=== PATIENT | male | born 2000 | race Two or more races ===

== ENCOUNTER 2025-02-22 15:09 | Emergency (ER) | payer MEDICAID, OTHER ==
[~2025-02-22] VITALS: Ht 167.6 cm; Wt 59.0 kg
[2025-02-22 15:11] VITALS: BP 108/54; PULSE 65; TEMP 97.6
--- NOTE | 2025-02-22 15:49 | ED.PDOC ---
GI ASSESSMENT HPI Comments 24 y/o M, presents to the ED for CC of nausea/vomiting. Patient states, he has been experiencing symptoms of nausea/vomiting sudden onset, this morning (02/22/25). Patient reports, associated symptoms of diffuse abdominal pain in relation. Patient relays, he has experienced similar symptoms in the past d/t cannabinoid hyperemesis syndrome; patient continues to smoke marijuana at this time. Patient denies fever, chills, diarrhea, or melena. No other symptoms or modifying factors are present at this time. Chief Complaint: Nausea/Vomiting Time Seen by MD: 15:40 Reviewed Notes: Nurses Notes, Medications, Allergies Allergies: Coded Allergies: NO KNOWN ALLERGIES (Unverified , 02/22/25) Information Source: Patient Mode of Arrival: Ambulatory Timing: Hours Duration: Since onset Prehospital treatment: None Quality: None Vomitus: Watery Stool: Normal Severity: Moderate Recent: None Recent Hx of: None Pain Location: Diffuse Modifying Factors: Nothing Associated sign and symptoms: Nausea, Vomiting, Abdominal Pain Past Medical History PAST MEDICAL HISTORY: Denies Surgical History: Denies all surgeries Family History Family History: Unknown Social History Smoker: Non-Smoker Alcohol: Occasionally Drugs: Marijuana Lives In: Home Constitutional: denies: chills, diaphoresis, fatigue, fever, malaise, sweats, weakness, others EENTM: denies: blurred vision, double vision, ear bleeding, ear discharge, ear drainage, ear pain, ear ringing, eye pain, eye redness, hearing loss, mouth pain, mouth swelling, nasal discharge, nose bleeding, nose congestion, nose pain, photophobia, tearing, throat pain, throat swelling, voice changes, others Respiratory: denies: cough, hemoptysis, orthopnea, SOB at rest, shortness of breath, SOB with excertion, stridor, wheezing, others Cardiovascular: denies: chest pain, dizzy spells, diaphoresis, Dyspnea on exertion, edema, irregular heart beat, left arm pain, lightheadedness, palpitations, PND, syncope, others Gastrointestinal: reports: abdominal pain, nausea, vomiting; denies: abdomen distended, blood streaked bowels, constipated, diarrhea, dysphagia, difficulty swallowing, hematemesis, melena, poor appetite, poor fluid intake, rectal bleeding, rectal pain, others Genitourinary: denies: burning, dysuria, flank pain, frequency, hematuria, incontinence, penile discharge, penile sore, pain, testicle pain, testicle swelling, urgency, others Neurological: denies: dizziness, fainting, headache, left sided numbness, left sided weakness, numbness, paresthesia, pre-existing deficit, right sided numbness, right sided weakness, seizure, speech problems, tingling, tremors, weakness, others Musculoskeletal: denies: back pain, gout, joint pain, joint swelling, muscle pa in, muscle stiffness, neck pain, others Integumetry: denies: bruises, change in color, change in hair/nails, dryness, laceration, lesions, lumps, rash, wounds, others Allergic/Immunocompromised: denies: Difficulty Healing, Frequent Infections, Hives, Itching, others Hematologic/Lymphatic: denies: anemia, blood clots, easy bleeding, easy bruising, swollen glands, others Endocrine: denies: excessive hunger, excessive sweating, excessive thirst, excessive urination, flushing, intolerance to cold, intolerance to heat, unexplained weight gain, unexplained weight loss, others Psychiatric: denies: anxiety, bipolar disorder, depression, hopeless, panic disorder, schizophrenia, sleepless, suicidal, others All Other Systems: Reviewed and Negative Physical Exam General Appearance: Moderate Distress HEENT: Pale Conjuntivae (L), Pale Conjuntivae (R), Pharynx Normal, TMs Normal Neck: Full Range of Motion, Non-Tender, Normal, Normal Inspection Respiratory: Chest Non-Tender, Lungs Clear, No Accessory Muscle Use, No Respiratory Distress, Normal Breath Sounds Cardiovascular: No Edema, No JVD, No Murmur, No Gallop, Normal Peripheral Pulses, Regular Rate/Rhythm Breast Exam: Deferred Gastrointestinal: No Organomegaly, Non Tender, No Pulsatile Mass, Normal Bowel Sounds, Soft Genitalia: Deferred Pelvic: Deferred Rectal: Deferred Extremities: No calf tenderness, Normal capillary refill, Normal inspection, N ormal range of motion, Non-tender, No pedal edema Musculoskeletal : Apperance: Normal Neurologic: Alert, rn acute care II-XII nml as Tested, Motor Weakness, Normal Affect, Normal Mood, No Sensory Deficits Cerebellar Function: Normal Reflexes: Normal Skin: Dry, Normal Color, Warm Lymphatic: No Adenopathy Was a procedure done? Was a procedure done?: No GI differential Dx Differential Diagnosis: Gastritis/PUD, Drug toxicity, Other (dehydration) X-Ray, Labs, Meds, VS Vital Signs Date Time Temp Pulse Resp B/P (MAP) Pulse Ox O2 Delivery O2 Flow Rate FiO2 02/22/25 16:03 18 99 Room Air* 0 21 02/22/25 15:11 97.6 65 20 108/54 100 97.6 Lab Test 02/22/25 15:55 Range/Units White Blood Count 10.2 4.4-10.8 10^3/uL Red Blood Count 5.61 4.5-5.90 10^6/uL Hemoglobin 16.5 13.5-17.5 g/dL Hematocrit 47.5 41.0-53.0 % Mean Corpuscular Volume 84.6 80.0-100.0 fL Mean Corpuscular Hemoglobin 29.4 28.0-32.0 pg Mean Corpuscular Hemoglobin Concent 34.8 32.0-36.0 g/dL Red Cell Distribution Width 13.4 11.8-14.3 % Platelet Count 304 140-450 10^3/uL Mean Platelet Volume 8.7 6.9-10.8 fL Neutrophils (%) (Auto) 78.6 37.0-80.0 % Lymphocytes (%) (Auto) 14.6 10.0-50.0 % Monocytes (%) (Auto) 6.2 0.0-12.0 % Eosinophils (%) (Auto) 0.3 0.0-7.0 % Basophils (%) (Auto) 0.3 0.0-2.0 % Neutrophils # (Auto) 8.0 1.6-8.6 10 ^3/uL Lymphocytes # (Auto) 1.5 0.4-5.4 10 ^3/uL Monocytes # (Auto) 0.6 0-1.3 10 ^3/uL Eosinophils # (Auto) 0 0-0.8 10 ^3/uL Basophils # (Auto) 0 0-0.2 10 ^3/uL Nucleated Red Blood Cells 0.3 % Sodium Level 144 136-145 mmol/L Potassium Level 3.6 3.5-5.1 mmol/L Chloride Level 104 98-107 mmol/L Carbon Dioxide Level 21 20-31 mmol/L Anion Gap 19 H 5-15 Blood Urea Nitrogen 7 L 9-23 mg/dL Creatinine 1.15 0.700-1.30 mg/dL Glomerular Filtration Rate Calc 92 >90 mL/min BUN/Creatinine Ratio 6.1 L 10.0-20.0 Serum Glucose 157 H 74-106 mg/dL Calcium Level 10.9 H 8.7-10.4 mg/dL Current Medications Medications (Trade) Dose Ordered Sig/Yonathan Route Start Time Stop Time Status Last Admin Sodium Chloride 1,000 ml @ 1,000 mls/hr Q1H ONCE IV 02/22/25 15:45 02/22/25 16:30 DC 02/22/25 15:56 Prochlorperazine Edisylate (Compazine Inj) 10 mg ONCE ONCE IV 02/22/25 15:45 02/22/25 15:46 DC 02/22/25 15:57 Pantoprazole Sodium (Protonix) 40 mg ONCE ONCE IV 02/22/25 15:45 02/22/25 15:46 DC 02/22/25 15:57 IV Hep-Lock was established. The patient was given 1 L bolus of normal saline The patient was given Compazine 10 mg IV push The patient was given Protonix 40 mg IV push The patient had a CBC and chemistry panel done and is within normal limits. At this time, the patient received the Compazine and now he states that he would like to leave. We did also discuss the fact that the patient's symptoms are secondary to the marijuana use and he is aware of that The patient has now signed out AMA. Images Reviewed?: Images reviewed and evaluated by me Time of 1ST Reevaluation: 16:10 Reevaluation 1ST: Unchanged Patient Education/Counseling: Diagnosis, Treatment, Prognosis Family Education/Counseling: No Family Present SEPSIS Sepsis Screen Date sepsis recognized/suspect: Feb 22, 2025 Time Sepsis recognized/suspect: 1510 Recent Procedure: No On Antibiotic Therapy: No Respiratory Rate >20: Yes Heart Rate >90: No Temp<36 C (96.8 F) or >38.3 C: No SBP <90 or MAP <65 mmHG: No New Acute Mental Status Change: No Is the patient on CPAP, BIPAP,: No Physician Orders Urinalysis (02/22/25 15:43) Heplock Iv (02/22/25 15:43) Vital Signs Date Time Temp Pulse Resp B/P (MAP) Pulse Ox O2 Delivery O2 Flow Rate FiO2 9/1/25 16:03 18 99 Room Air* 0 21 02/22/25 15:11 97.6 65 20 108/54 100 97.6 Laboratory Tests Test 02/22/25 15:55 White Blood Count 10.2 10^3/uL (4.4-10.8) Medications Medications Dose Ordered Sig/Yonathan Route Start Time Stop Time Status Last Admin Dose Admin Pantoprazole Sodium 40 mg ONCE ONCE IV 02/22/25 15:45 02/22/25 15:46 DC 02/22/25 15:57 Prochlorperazine Edisylate 10 mg ONCE ONCE IV 02/22/25 15:45 02/22/25 15:46 DC 02/22/25 15:57 Sodium Chloride 1,000 ml @ 1,000 mls/hr Q1H ONCE IV 02/22/25 15:45 02/22/25 16:30 DC 02/22/25 15:56 Departure 1 Departure Time of Disposition: 16:33 Impression: Primary Impression: Cannabinoid hyperemesis syndrome Disposition: 07 LEFT AGAINST MEDICAL ADVICE Condition: Fair Critical Care Note Critical Care Time?: No Stability Stability form required: No Heart Score Heart Score: Heart Score Response (Comments) Value History N/A 0 EKG N/A 0 Age N/A 0 Risk Factors N/A 0 Troponin N/A 0 Total 0 I personally scribed for NICOLE BRUNSON MD ([email or web address]) on 02/22/25 at 15:49. Electronically submitted by Karen Garnett ([email or web address]). NICOLE BRUNSON MD Feb 22, 2025 15:49
[2025-02-22] MEDS: SODIUM CHLORIDE 0.9% 1,000 ML IV ONE (15:56)
[2025-02-22] MEDS: PROCHLORPERAZINE EDISYLATE 5 MG/ML 2ML VIAL IV ONE (15:57)
[2025-02-22] MEDS: PANTOPRAZOLE 40 MG/10 ML VIAL INJ IV ONE (15:57)
[2025-02-22 16:03] VITALS: RESP 18; O2SAT 99
[2025-02-22 16:09] LABS: Hematocrit 47.5 % (41.0-53.0); Hemoglobin 16.5 g/dL (13.5-17.5); Mean Corpuscular Hemoglobin 29.4 pg (28.0-32.0); Mean Corpuscular Volume 84.6 fL (80.0-100.0); Nucleated Red Blood Cells % 0.3 %
[2025-02-22 16:20] LABS: Chloride 104 mmol/L (98-107); Potassium 3.6 mmol/L (3.5-5.1); Sodium 144 mmol/L (136-145)
[2025-02-22 16:21] LABS: Anion Gap 19 (5-15); Calcium 10.9 mg/dL (8.7-10.4); Carbon Dioxide 21 mmol/L (20-31)
[2025-02-22 16:26] LABS: BUN/Creatinine Ratio 6.1 (10.0-20.0)
[2025-02-22 16:27] LABS: Blood Urea Nitrogen 7 mg/dL (9-23); Glucose 157 mg/dL (74-106)
[2025-02-22] MEDS ORDERED: DICY10CA PO (19:27)
[2025-02-22] MEDS ORDERED: OMEP-434 PO (19:27)
[2025-02-22] MEDS ORDERED: ZOFR4T PO (19:27)
== END 2025-02-22 16:29 | disposition left against medical advice (07) ==
LOC: ER 15:09
DX: F12.90 Cannabis use, unspecified, uncomplicated (principal); F17.200 Nicotine dependence, unspecified, uncomplicated
CPT/HCPCS: 36415; 80048; 85025; 96361; 96374; 96375; 99284; J0780; J2470; J7030

== ENCOUNTER 2025-02-22 17:06 | Emergency (ER) | payer MEDICAID ==
[~2025-02-22] VITALS: Ht 167.6 cm; Wt 60.0 kg
--- NOTE | 2025-02-22 17:47 | ED.PDOC ---
GI ASSESSMENT HPI Comments This is a 24 year-old male who presents to the ED via wheelchair with a chief complaint of N/V with associated abdominal pain, abdominal cramping, and lightheadedness as of today. Patient reports last bowel movement today. Patient states he came to the ED earlier today but left AMA. His father advised him to return, as his symptoms had not improved. Patient has a social history of MJ use. Patient has no further complaints at this time and otherwise denies further associated symptoms of fever, chills, cough, SOB, chest pain, or diarrhea. Chief Complaint: Nausea/Vomiting Time Seen by MD: 17:32 Reviewed Notes: Nurses Notes, Medications, Allergies Allergies: Coded Allergies: NO KNOWN ALLERGIES (Unverified , 02/22/25) Home Meds Active Scripts Omeprazole Magnesium (Omeprazole) 20 Mg Tab, 20 MG PO DAILY, #30 TAB Prov:MAREN ANTHONY MD 02/22/25 Dicyclomine Hcl (BENTYL CAPSULE) 10 Mg Cp, 2 CAP PO Q6HP PRN, #30 CAP 11 Refills Prov:MAREN ANTHONY MD 02/22/25 Ondansetron Odt 4MG Tab (ZOFRAN PO) 4 Mg Tb, 4 MG PO TID PRN, #30 TAB ODT TAB-DISSOLVE IN MOUTH, THEN SWALLOW Prov:MAREN ANTHONY MD 02/22/25 Information Source: Patient Mode of Arrival: Wheelchair Timing: Hours Duration: Since onset Prehospital treatment: None Quality: Cramping Severity: Moderate Pain Location: Diffuse Associated sign and symptoms: Nausea, Vomiting, Abdominal Pain Past Medical History PAST MEDICAL HISTORY: Denies Surgical History: Denies all surgeries Family History Family History: Unknown Social History Smoker: Non-Smoker Alcohol: Occasionally Drugs: Marijuana Lives In: Home Constitutional: denies: chills, diaphoresis, fatigue, fever, malaise, sweats, weakness, others EENTM: denies: blurred vision, double vision, ear bleeding, ear discharge, ear drainage, ear pain, ear ringing, eye pain, eye redness, hearing loss, mouth pain, mouth swelling, nasal discharge, nose bleeding, nose congestion, nose pain, photophobia, tearing, throat pain, throat swelling, voice changes, others Respiratory: denies: cough, hemoptysis, orthopnea, SOB at rest, shortness of breath, SOB with excertion, stridor, wheezing, others Cardiovascular: denies: chest pain, dizzy spells, diaphoresis, Dyspnea on exertion, edema, irregular heart beat, left arm pain, lightheadedness, palpitations, PND, syncope, others Gastrointestinal: reports: abdominal pain, nausea, vomiting; denies: abdomen distended, blood streaked bowels, constipated, diarrhea, dysphagia, difficulty swallowing, hematemesis, melena, poor appetite, poor fluid intake, rectal b leeding, rectal pain, others Genitourinary: denies: burning, dysuria, flank pain, frequency, hematuria, in continence, penile discharge, penile sore, pain, testicle pain, testicle swelling, urgency, others Neurological: reports: others (lightheadedness ); denies: dizziness, fainting, headache, left sided numbness, left sided weakness, numbness, paresthesia, pre- existing deficit, right sided numbness, right sided weakness, seizure, speech problems, tingling, tremors, weakness Musculoskeletal: denies: back pain, gout, joint pain, joint swelling, muscle pain, muscle stiffness, neck pain, others Integumetry: denies: bruises, change in color, change in hair/nails, dryness, laceration, lesions, lumps, rash, wounds, others Allergic/Immunocompromised: denies: Difficulty Healing, Frequent Infections, Hives, Itching, others Hematologic/Lymphatic: denies: anemia, blood clots, easy bleeding, easy bruising, swollen glands, others Endocrine: denies: excessive hunger, excessive sweating, excessive thirst, excessive urination, flushing, intolerance to cold, intolerance to heat, unexplained weight gain, unexplained weight loss, others Psychiatric: denies: anxiety, bipolar disorder, depression, hopeless, panic disorder, schizophrenia, sleepless, suicidal, others All Other Systems: Reviewed and Negative Physical Exam General Appearance: Mild Distress HEENT: Other (Pupils and face symmetric. Dry mucous membranes.) Neck: Full Range of Motion, Normal Inspection Respiratory: Lungs Clear, No Accessory Muscle Use, No Respiratory Distress, Normal Breath Sounds Cardiovascular: No Edema, No JVD, Regular Rate/Rhythm Breast Exam: Deferred Gastrointestinal: Soft, Tenderness (Mid abdominal) Genitalia: Deferred Pelvic: Deferred Rectal: Deferred Extremities: Normal inspection, Normal range of motion, Non-tender, No pedal edema Neurologic: Alert (Oriented x4), Normal Affect, Normal Mood, Other (Ambulatory) Cerebellar Function: NOT DONE Reflexes: NOT DONE Skin: Dry, Pallor, Warm Lymphatic: NOT DONE Was a procedure done? Was a procedure done?: No GI differential Dx Differential Diagnosis: Bowel Obstruction, Constipation, Diverticular disease, Gastritis/PUD, Gastroenteritis, Inflammatory BD, Pancreatitis, UTI, Dehydration, Diabetes/ DKA, Electrolyte Imbalance, Food Poisoning, Bacterial, Viral, Hypovolemia, Impaction, Stress Ulcer, Kidney Stone, Other (Hyperemesis cannabis, among others) X-Ray, Labs, Meds, VS Vital Signs Date Time Temp Pulse Resp B/P (MAP) Pulse Ox O2 Delivery O2 Flow Rate FiO2 02/22/25 20:06 59 14 108/61 02/22/25 19:56 97.9 59 14 108/61 (77) 99 97.9 02/22/25 17:09 97.8 60 16 111/66 98 97.8 Lab Test 02/22/25 17:54 Range/Units Total Bilirubin 1.2 H 0.2-1.0 mg/dL Direct Bilirubin 0.4 H <0.3 mg/dL Aspartate Amino Transferase (AST) 22 13-40 U/L Alanine Aminotransferase (ALT) 16 7-40 U/L Alkaline Phosphatase 71 46-116 U/L Total Protein 7.9 5.7-8.2 g/dL Albumin 5.2 H 3.2-4.8 g/dL Lipase 33 12-53 U/L Beta-Hydroxybutyric Acid 1.797 H < 0.4 mmol/L Current Medications Medications (Trade) Dose Ordered Sig/Yonathan Route Start Time Stop Time Status Last Admin Sodium Chloride 1,000 ml @ 1,000 mls/hr Q1H ONCE IV 02/22/25 17:45 02/22/25 18:44 DC 02/22/25 18:48 Ondansetron HCl (Zofran) 4 mg ONCE ONCE IV 02/22/25 17:45 02/22/25 17:46 DC 02/22/25 20:05 Morphine Sulfate 4 mg ONCE ONCE IV 02/22/25 17:45 02/22/25 17:46 DC 02/22/25 20:06 PROCEDURE(s): ABPL - CT AB PEL WO CON-NO ORAL OR IV REASON: mid abd pain, n/v ORDER NUMBER(s): [id number], ACCESSION NUMBER(s): [id number] Exam: CT CT AB PEL WO CON-NO ORAL OR IV History: mid abd pain, n/v Comparison Study: None TECHNIQUE: Multidetector CT of the abdomen was performed from lung bases to pubic symphysis. Imaging was performed without IV contrast. Axial, coronal and sagittal multiplanar reformats were obtained from the axial data set by the technologist. Radiation Dose Information: CT Dose: CTDI volume is 5.07 mGy. Dose-length product is 279.99 mGy*cm FINDINGS: Evaluation of solid organs is limited due to lack of intravenous contrast use. Findings: Lung Bases: No acute or significant lung base finding. Normal heart size. No pleural or pericardial effusion. Liver: The liver is normal in size. No focal lesions. Gallbladder and Biliary Tree: Unremarkable Spleen: Unremarkable Pancreas: The pancreas is grossly normal in appearance. Adrenal Glands: Unremarkable Kidneys: Kidneys are grossly normal without calculi or hydronephrosis. Bladder: Grossly unremarkable for degree of distention. Bowel: The stomach is grossly normal in appearance. Small bowel and colon are normal in caliber and distribution. The appendix is not visualized; however, no secondary findings of acute appendicitis identified. Ascites: Absent Lymphadenopathy: No mesenteric, retroperitoneal or periportal lymphadenopathy. Abdominal Wall and Mesentery: Unremarkable. Vasculature: The visualized abdominal aorta is normal in size and caliber. Evaluation of abdominal and pelvic vessels is limited due to lack of intravenous contrast. Pelvic Organs: Unremarkable Musculoskeletal: No aggressive focal bony lesions, acute fractures or dislocation. Soft tissues: Unremarkable IMPRESSION: 1. No calcified gallstones 2. No findings of bowel obstruction 3. No nephrolithiasis or hydronephrosis. 4. No free air or free fluid. Radiation optimization: All CT scans at this facility use at least one of these dose optimization techniques: automated exposure control mA and/or kV adjustment per patient size (includes targeted exams where dose is matched to clinical indication) or iterative reconstruction. X-Ray, Labs, Meds, VS Comment 24-year-old male with history of marijuana use complaining of mid abdominal pain, nausea, vomiting and abdominal cramping Vitals unremarkable Exam remarkable for mid abdominal tenderness to palpation and pallor Rhythm strip independently interpreted by me: Sinus rhythm, rate 60, no ectopy. CT abdomen and pelvis IMPRESSION: 1. No calcified gallstones 2. No findings of bowel obstruction 3. No nephrolithiasis or hydronephrosis. 4. No free air or free fluid. CBC from patient's prior visit today was unremarkable, basic metabolic panel was remarkable for glucose 157, anion gap 19, calcium 10.9 Hepatic panel from this visit remarkable for total bili 1.2, direct bili 0.4, albumin 5.2. Lipase normal. ABG was ordered, however patient refused. Beta hydroxybutyrate 1.797 Patient treated with the following in the ED: 1 L 0.9 normal saline IV bolus, morphine 4 mg IV, Zofran 4 mg IV, Ativan 1 mg IV On re-evaluation patient stated he did not have improvement of his nausea with Zofran, so was requesting "the medicine used for weed smokers." IV Ativan was subsequently ordered with improvement of nausea. Hospitalization was considered, however patient had rapid improvement of symptoms with treatment in the ED, and I no longer feel hospitalization is necessary. Differential includes DKA, however blood glucose and beta hydroxybutyrate are only mildly elevated. Patient refused ABG. Patient and family are now requesting to be discharged, as patient states his symptoms have resolved. Patient now appears stable for discharge with close outpatient follow-up with his primary doctor. Rx Zofran, omeprazole, Bentyl Images Reviewed?: Images reviewed and evaluated by me Time of 1ST Reevaluation: 18:27 Reevaluation 1ST: Unchanged Patient Education/Counseling: Diagnosis, Treatment, Need For Follow Up Family Education/Counseling: No Family Present Medical Screening: No EMC Exist At This Time SEPSIS Sepsis Screen Date sepsis recognized/suspect: Feb 22, 2025 Time Sepsis recognized/suspect: 1709 Recent Procedure: No On Antibiotic Therapy: No Respiratory Rate >20: No Heart Rate >90: No Temp<36 C (96.8 F) or >38.3 C: No SBP <90 or MAP <65 mmHG: No New Acute Mental Status Change: No Is the patient on CPAP, BIPAP,: No Physician Orders Urinalysis (02/22/25 17:42) Ct Ab Pel Wo Con-No Oral Or Iv (02/22/25 17:42) Abg W/ Co-Ox (02/22/25 19:19) Vital Signs Date Time Temp Pulse Resp B/P (MAP) Pulse Ox O2 Delivery O2 Flow Rate FiO2 02/22/25 20:06 59 14 108/61 02/22/25 19:56 97.9 59 14 108/61 (77) 99 97.9 02/22/25 17:09 97.8 60 16 111/66 98 97.8 Medications Medications Dose Ordered Sig/Yonathan Route Start Time Stop Time Status Last Admin Dose Admin Morphine Sulfate 4 mg ONCE ONCE IV 02/22/25 17:45 02/22/25 17:46 DC 02/22/25 20:06 Ondansetron HCl 4 mg ONCE ONCE IV 02/22/25 17:45 02/22/25 17:46 DC 02/22/25 20:05 Sodium Chloride 1,000 ml @ 1,000 mls/hr Q1H ONCE IV 02/22/25 17:45 02/22/25 18:44 DC 02/22/25 18:48 Departure 1 Departure Time of Disposition: 19:30 Impression: Primary Impression: Abdominal pain Additional Impressions: Nausea and vomiting Cannabinoid hyperemesis syndrome Disposition: HOME / SELF CARE / HOMELESS Condition: Stable Additional Instructions: Your CT scan was unremarkable. I have prescribed medication for your symptoms, which may be due to cannabis hyperemesis syndrome. Follow-up with your primary doctor in 1-2 days. Return to ER for persistent or worsening symptoms. [place] [address] Ph: [phone] DIAGNOSTIC IMAGING Diagnostic Imaging Report : [id number] Signed PATIENT: SHARMIN SHAVER ACCT: [id number] UNIT: [id number] : 2000 LOC: ER ROOM / BED: / AGE / SEX: 24 / M ADM STATUS: REG ER SERVICE [id number] ORDERING PHYSICIAN: MAREN ANTHONY MD PROCEDURE(s): ABPL - CT AB PEL WO CON-NO ORAL OR IV REASON: mid abd pain, n/v ORDER NUMBER(s): [id number], ACCESSION NUMBER(s): [id number] Exam: CT CT AB PEL WO CON-NO ORAL OR IV History: mid abd pain, n/v Comparison Study: None TECHNIQUE: Multidetector CT of the abdomen was performed from lung bases to pubic symphysis. Imaging was performed without IV contrast. Axial, coronal and sagittal multiplanar reformats were obtained from the axial data set by the technologist. Radiation Dose Information: CT Dose: CTDI volume is 5.07 mGy. Dose-length product is 279.99 mGy*cm FINDINGS: Evaluation of solid organs is limited due to lack of intravenous contrast use. Findings: Lung Bases: No acute or significant lung base finding. Normal heart size. No pleural or pericardial effusion. Liver: The liver is normal in size. No focal lesions. Gallbladder and Biliary Tree: Unremarkable Spleen: Unremarkable Pancreas: The pancreas is grossly normal in appearance. Adrenal Glands: Unremarkable Kidneys: Kidneys are grossly normal without calculi or hydronephrosis. Bladder: Grossly unremarkable for degree of distention. Bowel: The stomach is grossly normal in appearance. Small bowel and colon are normal in caliber and distribution. The appendix is not visualized; however, no secondary findings of acute appendicitis identified. Ascites: Absent Lymphadenopathy: No mesenteric, retroperitoneal or periportal lymphadenopathy. Abdominal Wall and Mesentery: Unremarkable. Vasculature: The visualized abdominal aorta is normal in size and caliber. Evaluation of abdominal and pelvic vessels is limited due to lack of intravenous contrast. Pelvic Organs: Unremarkable Musculoskeletal: No aggressive focal bony lesions, acute fractures or dislocation. Soft tissues: Unremarkable IMPRESSION: 1. No calcified gallstones 2. No findings of bowel obstruction 3. No nephrolithiasis or hydronephrosis. 4. No free air or free fluid. Radiation optimization: All CT scans at this facility use at least one of these dose optimization techniques: automated exposure control mA and/or kV adjustment per patient size (includes targeted exams where dose is matched to clinical indication) or iterative reconstruction. e-Prescriptions Omeprazole Magnesium (Omeprazole) 20 Mg Tab 20 MG PO DAILY, #30 TAB Prov: MAREN ANTHONY MD 02/22/25 Dicyclomine Hcl (BENTYL CAPSULE) 10 Mg Cp 2 CAP PO Q6HP PRN, #30 CAP 11 Refills Prov: MAREN ANTHONY MD 02/22/25 Ondansetron Odt 4MG Tab (ZOFRAN PO) 4 Mg Tb 4 MG PO TID PRN, #30 TAB ODT TAB-DISSOLVE IN MOUTH, THEN SWALLOW Prov: MAREN ANTHONY MD 02/22/25 Discharged With: Relative Critical Care Note Critical Care Time?: No Stability Stability form required: No Heart Score Heart Score: Heart Score Response (Comments) Value History N/A 0 EKG N/A 0 Age N/A 0 Risk Factors N/A 0 Troponin N/A 0 Total 0 I personally scribed for MAREN ANTHONY MD ([email or web address]) on 02/22/25 at 17:47. Electronically submitted by Alysa Casanova ([email or web address]). I personally scribed for MAREN ANTHONY MD ([email or web address]) on 02/22/25 at 17:47. Electronically submitted by Alysa Casanova ([employer]). MAREN ANTHONY MD Feb 22, 2025 17:47
[2025-02-22 18:33] LABS: Alanine Aminotransferase 16.0 U/L (7-40); Alkaline Phosphatase 71.0 U/L (46-116); Total Protein 7.9 g/dL (5.7-8.2)
[2025-02-22 18:34] LABS: Albumin 5.2 g/dL (3.2-4.8); Bilirubin, Direct 0.4 mg/dL (<0.3); Bilirubin, Total 1.2 mg/dL (0.2-1.0)
[2025-02-22 18:44] LABS: Lipase 33.0 U/L (12-53)
[2025-02-22] MEDS: SODIUM CHLORIDE 0.9% 1,000 ML IV ONE (18:48)
--- NOTE | 2025-02-22 18:48 | DVH ---
Exam: CT CT AB PEL WO CON-NO ORAL OR IV History: mid abd pain, n/v Comparison Study: None TECHNIQUE: Multidetector CT of the abdomen was performed from lung bases to pubic symphysis. Imaging was performed without IV contrast. Axial, coronal and sagittal multiplanar reformats were obtained fr om the axial data set by the technologist. Radiation Dose Information: CT Dose: CTDI volume is 5.07 mGy. Dose-length product is 279.99 mGy*cm FINDINGS: Evaluation of solid organs is limited due to lack of intravenous contrast use. Findings: Lung Bases: No acute or significant lung base finding. Normal heart size. No pleural or pericardial effusion. Liver: The liver is normal in size. No focal lesions. Gallbladder and Biliary Tree: Unremarkable Spleen: Unremarkable Pancreas: The pancreas is grossly normal in appearance. Adrenal Glands: Unremarkable Kidneys: Kidneys are grossly normal without calculi or hydronephrosis. Bladder: Grossly unremarkable for degree of distention. Bowel: The stomach is grossly normal in appearance. Small bowel and colon are normal in caliber and d istribution. The appendix is not visualized; however, no secondary findings of acute appendicitis id entified. Ascites: Absent Lymphadenopathy: No mesenteric, retroperitoneal or periportal lymphadenopathy. Abdominal Wall and Mesentery: Unremarkable. Vasculature: The visualized abdominal aorta is normal in size and caliber. Evaluation of abdominal a nd pelvic vessels is limited due to lack of intravenous contrast. Pelvic Organs: Unremarkable Musculoskeletal: No aggressive focal bony lesions, acute fractures or dislocation. Soft tissues: Unremarkable IMPRESSION: 1. No calcified gallstones 2. No findings of bowel obstruction 3. No nephrolithiasis or hydronephrosis. 4. No free air or free fluid. Radiation optimization: All CT scans at this facility use at least one of these dose optimization marcia hniques: automated exposure control mA and/or kV adjustment per patient size (includes targeted exam s where dose is matched to clinical indication) or iterative reconstruction.
[2025-02-22] MEDS: LORazepam 2MG/ML-1ML VIAL IV ONE (19:00)
[2025-02-22] MEDS ORDERED: DICY10CA PO (19:27)
[2025-02-22] MEDS ORDERED: OMEP-434 PO (19:27)
[2025-02-22] MEDS ORDERED: ZOFR4T PO (19:27)
[2025-02-22] MEDS: ONDANSETRON HCL 4 MG/2 ML VIAL IV ONE (20:05)
[2025-02-22] MEDS: MORPHINE SULFATE 4 MG/ML SYR/VIAL IV ONE (20:06)
[2025-02-22 21:06] VITALS: BP 110/63; PULSE 62; RESP 14; TEMP 97.9; O2SAT 99
== END 2025-02-22 21:07 | disposition home or self-care (01) ==
LOC: ER 17:06
DX: F12.90 Cannabis use, unspecified, uncomplicated (principal); R10.84 Generalized abdominal pain; R11.2 Nausea with vomiting, unspecified; Z79.899 Other long term (current) drug therapy
CPT/HCPCS: 36415; 36600; 74176; 80076; 82010; 82805; 83690; 96361; 96374; 96375; 99285; J2270; J2405; J7030